=== PATIENT | female | born 1995 | race Two or more races ===

== ENCOUNTER 2016-12-04 00:17 | Emergency (ER) | payer OTHER ==
[2016-12-04] MEDS ORDERED: FLUCONAZOLE 50 MG TABLET PO ONE (00:50)
--- NOTE | 2016-12-04 00:54 | PDOC ---
History of Present Illness - General History Source: Patient Exam Limitations: No Limitations - History of Present Illness Initial Comments: 12/04/16 01:20 The patient is a 21 year old female with no significant past medical history, who presents to the ED with vaginal discharge. The patient noted 2 days of whitish cottage cheese discharge and dysuria. Patient denies any abdominal pain. Patient denies fever, chills. Patient states she had sex with her 3 days ago. Patient states she trusts her . Patient denies history of STDs. <Aakash Baitsta - Last Filed: 12/04/16 01:20> - General History Source: Patient Exam Limitations: No Limitations <Shmuel Rojo - Last Filed: 12/04/16 02:29> - General Stated Complaint: ABDOMINAL PAIN Time Seen by Provider: 12/04/16 00:29 Past History <Aakash Batista - Last Filed: 12/04/16 01:20> - Past Medical History Asthma: No Cancer: No Cardiac Disorders: No Diabetes: No HTN: No Seizures: No Thyroid Disease: No - Psycho/Social/Smoking Cessation Hx Suicidal Ideation: No Smoking History: Never smoked Have you smoked in the past 12 months: No Hx Alcohol Use: No Drug/Substance Use Hx: No Hx Substance Use Treatment: No <Shmuel Rojo - Last Filed: 12/04/16 02:29> - Past Medical History Allergies/Adverse Reactions: Allergies Allergy/AdvReac Type Severity Reaction Status Date / Time No Known Allergies Allergy Verified 12/04/16 01:03 Home Medications: Ambulatory Orders Pnv No.122/Iron/Folic Acid [ Multi Tablet] 1 each PO DAILY 01/20/16 Acetaminophen [Tylenol] 650 mg PO Q4H PRN #20 tablet 12/04/16 Cephalexin [Keflex] 500 mg PO BID #14 capsule 12/04/16 Review of Systems - Review of Systems Able to Perform ROS?: Yes Comments:: 12/04/16 01:20 GENERAL/CONSTITUTIONAL: No fever or chills. No weakness. HEAD, EYES, EARS, NOSE AND THROAT: No change in vision. No ear pain or discharge. No sore throat. CARDIOVASCULAR: No chest pain or shortness of breath. RESPIRATORY: No cough, wheezing, or hemoptysis. GASTROINTESTINAL: No nausea, vomiting, diarrhea or constipation. GENITOURINARY: + vaginal discharge. + dysuria. No frequency, or change in urination. MUSCULOSKELETAL: No joint or muscle swelling or pain. No neck or back pain. SKIN: No rash NEUROLOGIC: No headache, vertigo, loss of consciousness, or change in strength/ sensation. ENDOCRINE: No increased thirst. No abnormal weight change. HEMATOLOGIC/LYMPHATIC: No anemia, easy bleeding, or history of blood clots. ALLERGIC/IMMUNOLOGIC: No hives or skin allergy. Is the patient limited Nepalese proficient: No <Aakash Batista - Last Filed: 12/04/16 01:20> *Physical Exam - Vital Signs Last Vital Signs Temp Pulse Resp BP Pulse Ox 98.9 F 78 18 116/80 99 12/04/16 01:00 12/04/16 01:00 12/04/16 01:00 12/04/16 01:00 12/04/16 01:00 - Physical Exam Comments: 12/04/16 01:21 GENERAL: Awake, alert, and fully oriented, in no acute distress HEAD: No signs of trauma EYES: PERRLA, EOMI, sclera anicteric, conjunctiva clear ENT: Auricles normal inspection, hearing grossly normal, nares patent, oropharynx clear without exudates. Moist mucosa NECK: Normal ROM, supple, no lymphadenopathy, JVD, or masses LUNGS: Breath sounds equal, clear to auscultation bilaterally. No wheezes, and no crackles HEART: Regular rate and rhythm, normal S1 and S2, no murmurs, rubs or gallops ABDOMEN: Soft, nontender, normoactive bowel sounds. No guarding, no rebound. No masses VAGINAL: Whitish cottage cheese discharge. No CMT. No adnexal tenderness. EXTREMITIES: Normal range of motion, no edema. No clubbing or cyanosis. No cords, erythema, or tenderness NEUROLOGICAL: Cranial nerves II through XII grossly intact. Normal speech, normal gait SKIN: Warm, Dry, normal turgor, no rashes or lesions noted. <Aakash Batista - Last Filed: 12/04/16 01:20> Medical Decision Making - Medical Decision Making 12/04/16 01:14 A portion of this note was documented by scribe services under my direction. I have reviewed the details of the note, within reason, and agree with the documentation with the following case summary and management plan written by me. Patient treated in the ED. Nursing notes are reviewed and incorporated into the medical decision-making. Vital signs reviewed. Peripheral IV access obtained by the nurse, laboratory studies are drawn and sent, reviewed and interpreted by myself. Vital Signs Temp Pulse Resp BP Pulse Ox 98.9 F 78 18 116/80 99 12/04/16 01:00 12/04/16 01:00 12/04/16 01:00 12/04/16 01:00 12/04/16 01:00 21 year old female with no past medical history presents with vaginal discharge. The patient noted 2 days of whitish cottage cheese discharge and dysuria. No abdominal pain or fever. Had sex 3 days ago with her . She trusts her . Denies hx of STDs. Pt has a vaginal yeast infection. Will treat with antifungals. UA/UC. Pain control. Reassess 12/04/16 02:27 Urine Test Results Urine Color Yellow 12/04/16 01:26 Urine Appearance Slcloudy 12/04/16 01:26 Urine pH 6.0 (5.0-8.0) 12/04/16 01:26 Ur Specific [place] 1.031 (1.001-1.035) 12/04/16 01:26 Urine Protein Negative (NEGATIVE) 12/04/16 01:26 Urine Glucose (UA) Negative (NEGATIVE) 12/04/16 01:26 Urine Ketones Negative (NEGATIVE) 12/04/16 01:26 Urine Blood Negative (NEGATIVE) 12/04/16 01:26 Urine Nitrite Negative (NEGATIVE) 12/04/16 01:26 Urine Bilirubin Negative (NEGATIVE) 12/04/16 01:26 Ur Leukocyte Esterase 3+ (NEGATIVE) H D 12/04/16 01:26 Urine RBC 6 /hpf (0-3) 12/04/16 01:26 Urine WBC 17 /hpf (3-5) 12/04/16 01:26 Ur Epithelial Cells Rare /hpf (FEW) 12/04/16 01:26 Urine Mucus Many 12/04/16 01:26 Urine test negative. Will treat with keflex Fluconazole was ordered. I discussed the physical exam findings, ancillary test results and final diagnoses with the patient. I answered all of the patient's questions. The patient was satisfied with the care received and felt comfortable with the discharge plan and treatment plan. The patient will call their primary care physician within 24 hours to arrange follow-up and will return to the Emergency Department with any new, persistant or worsening symptoms. <Shmuel Rojo - Last Filed: 12/04/16 02:29> *DC/Admit/Observation/Transfer - Attestations Scribe Attestion: 12/04/16 01:23 Documentation prepared by Aakash Batista, acting as medical translator for Shmuel Rojo MD, MD. <Aakash Batisat - Last Filed: 12/04/16 01:20> - Discharge Dispostion Admit: No <Shmuel Rojo - Last Filed: 12/04/16 02:29> Diagnosis at time of Disposition: Vaginal yeast infection UTI (urinary tract infection) Qualifiers: Urinary tract infection type: site unspecified Hematuria presence: without hematuria Qualified Code(s): N39.0 - Urinary tract infection, site not specified - Discharge Dispostion Disposition: HOME Condition at time of disposition: Improved - Prescriptions Prescriptions: Cephalexin [Keflex] 500 mg PO BID #14 capsule Acetaminophen [Tylenol] 650 mg PO Q4H PRN #20 tablet PRN Reason: Pain/Fever - Patient Instructions Printed Discharge Instructions: DI for Urinary Tract Infection (UTI), DI for Vaginal Yeast Infection Additional Instructions: You have a yeast and urine infection. Please take the keflex (antibiotic) every 12 hours for the next week. You were also given a dose of fluconazole. Follow up with your doctors.
[2016-12-04] MEDS ORDERED: ACETAMINOPHEN 325 MG TABLET (FP) PO ONE (00:56)
[2016-12-04 01:03] VITALS: BP 116/80; PULSE 78; TEMP 98.9; BMI 21.7
[2016-12-04] MEDS ORDERED: FLUCONAZOLE 100 MG TABLET (UD) ONE (01:16)
[2016-12-04] MEDS ORDERED: ACETAMINOPHEN 325 MG TABLET (FP) ONE (01:16)
[2016-12-04 01:59] LABS: URINE APPEARANCE SLCLOUDY; URINE BILIRUBIN NEGATIVE (NEGATIVE); URINE BLOOD NEGATIVE (NEGATIVE); URINE COLOR YELLOW; URINE GLUCOSE (UA) NEGATIVE (NEGATIVE); URINE KETONE NEGATIVE (NEGATIVE); URINE NITRITE NEGATIVE (NEGATIVE); URINE PROTEIN NEGATIVE (NEGATIVE); URINE UROBILINOGEN NEGATIVE E.U./dl (0.2-1.0)
[2016-12-04 02:23] LABS: URINE LEUK ESTERASE 3+ (NEGATIVE)
[2016-12-04 02:25] LABS: URINE MUCUS MANY; URINE RBC 6 /hpf (0-3); URINE WBC 17 /hpf (3-5)
[2016-12-04] MEDS ORDERED: CEPHALEXIN MONOHYDRATE 500 MG CAPSULE (UD) PO ONE (02:26)
[2016-12-04] MEDS ORDERED: CEPHALEXIN MONOHYDRATE 250 MG CAPSULE (FP) ONE (02:29)
== END 2016-12-04 02:36 | disposition home or self-care (01) ==
LOC: JER 00:17
DX: B37.49 Other urogenital candidiasis (principal)
CPT/HCPCS: 81003; 81015; 84703; 87077; 87086; 99282-25

== ENCOUNTER 2017-05-11 15:07 | Emergency (ER) | payer OTHER ==
[2017-05-11 15:16] VITALS: TEMP 98.3; BMI 22.3
--- NOTE | 2017-05-11 16:38 | PDOC ---
History of Present Illness - General History Source: Patient Exam Limitations: No Limitations - History of Present Illness Initial Comments: 05/11/17 16:45 The patient is a 21 year old female, A0 with no significant past medical history, who presents to the emergency department with abdominal pain onset today. She describes her abdominal pain as a cramping sensation, ranging from mild to moderate, without radiation or modifying factors. She notes that she was told yesterday that she was but is not aware of how many weeks she is. She reports that she was taking control and has not had her menstrual period since she recently gave to a full term child via vaginal . She denies any vaginal bleeding. The patient is currently breast feeding her . The patient denies chest pain, shortness of breath, headache and dizziness. Denies fever, chills, nausea, vomit, diarrhea and constipation. Denies dysuria, frequency, urgency and hematuria. Allergies: None Past surgical history: None reported Social history: No alcohol, tobacco or drug use reported <Edwin Katz - Last Filed: 05/11/17 16:44> - General History Source: Patient Exam Limitations: No Limitations <Shmuel Rojo - Last Filed: 05/11/17 19:35> - General Chief Complaint: Pain Stated Complaint: PAIN IN VAGINAL AREA Time Seen by Provider: 05/11/17 16:05 Past History <Edwin Katz - Last Filed: 05/11/17 16:44> - Past Medical History Asthma: No Cancer: No Cardiac Disorders: No Diabetes: No HTN: No Seizures: No Thyroid Disease: No - Reproductive History (#): 1 Para: 1 - Psycho/Social/Smoking Cessation Hx Anxiety: No Suicidal Ideation: No Smoking History: Never smoked Have you smoked in the past 12 months: No Hx Alcohol Use: No Drug/Substance Use Hx: No Substance Use Type: None Hx Substance Use Treatment: No <Shmuel Rojo - Last Filed: 05/11/17 19:35> - Past Medical History Allergies/Adverse Reactions: Allergies Allergy/AdvReac Type Severity Reaction Status Date / Time No Known Allergies Allergy Verified 05/11/17 15:16 Home Medications: Ambulatory Orders Pnv No.122/Iron/Folic Acid [ Multi Tablet] 1 each PO DAILY 01/20/16 Acetaminophen [Tylenol] 650 mg PO Q4H PRN #20 tablet 12/04/16 Cephalexin [Keflex] 500 mg PO BID #14 capsule 12/04/16 Nitrofurantoin Monohyd/M-Cryst [Macrobid -] 100 mg PO BID #14 capsule 05/11/17 Vit Calc,Iron,Folic [ Vitamins] 1 each PO DAILY #30 tablet Review of Systems - Review of Systems Able to Perform ROS?: Yes Comments:: 05/11/17 16:44 GENERAL/CONSTITUTIONAL: No fever or chills. No weakness. HEAD, EYES, EARS, NOSE AND THROAT: No change in vision. No ear pain or discharge. No sore throat. CARDIOVASCULAR: No chest pain or shortness of breath RESPIRATORY: No cough, wheezing, or hemoptysis. GASTROINTESTINAL: (+) Abdominal cramping. No nausea, vomiting, diarrhea or constipation. GENITOURINARY: No dysuria, frequency, or change in urination. MUSCULOSKELETAL: No joint or muscle swelling or pain. No neck or back pain. SKIN: No rash NEUROLOGIC: No headache, vertigo, loss of consciousness, or change in strength/ sensation. ENDOCRINE: No increased thirst. No abnormal weight change HEMATOLOGIC/LYMPHATIC: No anemia, easy bleeding, or history of blood clots. ALLERGIC/IMMUNOLOGIC: No hives or skin allergy. <Edwin Katz - Last Filed: 05/11/17 16:44> *Physical Exam - Vital Signs Last Vital Signs Temp Pulse Resp BP Pulse Ox 98.3 F 82 20 127/68 100 05/11/17 15:14 05/11/17 15:14 05/11/17 15:14 05/11/17 15:14 05/11/17 15:14 - Physical Exam Comments: 05/11/17 16:44 GENERAL: Awake, alert, and fully oriented, in no acute distress HEAD: No signs of trauma, normocephalic, atraumatic EYES: PERRLA, EOMI, sclera anicteric, conjunctiva clear ENT: Auricles normal inspection, hearing grossly normal, nares patent, oropharynx clear without exudates. Moist mucosa NECK: Normal ROM, supple, no lymphadenopathy, JVD, or masses LUNGS: No distress, speaks full sentences, clear to auscultation bilaterally HEART: Regular rate and rhythm, normal S1 and S2, no murmurs, rubs or gallops, peripheral pulses normal and equal bilaterally. ABDOMEN: Soft, nontender, normoactive bowel sounds. No guarding, no rebound. No masses EXTREMITIES: Normal inspection, Normal range of motion, no edema. No clubbing or cyanosis. NEUROLOGICAL: Cranial nerves II through XII grossly intact. Normal speech, normal gait, no focal sensorimotor deficits SKIN: Warm, Dry, normal turgor, no rashes or lesions noted. PELVIC EXAM: No CMT, no anexal tenderness, no blood in vault, os closed <Edwin Katz - Last Filed: 05/11/17 16:44> - Vital Signs Last Vital Signs Temp Pulse Resp BP Pulse Ox 98.3 F 82 20 127/68 100 05/11/17 15:14 05/11/17 15:14 05/11/17 15:14 05/11/17 15:14 05/11/17 15:14 <Shmuel Rojo - Last Filed: 05/11/17 19:35> ED Treatment Course - LABORATORY CBC & Chemistry Diagram: 05/11/17 17:00 <Shmuel Rojo - Last Filed: 05/11/17 19:35> Medical Decision Making - Medical Decision Making 05/11/17 16:36 A portion of this note was written by my scribe, under my supervision. Vital Signs Temp Pulse Resp BP Pulse Ox 98.3 F 82 20 127/68 100 05/11/17 15:14 05/11/17 15:14 05/11/17 15:14 05/11/17 15:14 05/11/17 15:14 21 year old female with no past medical history, , recently tested positive for , presents with lower abdominal cramping. The patient states that she recently found she was . She is still breast feeding her baby and did not have a period. Today, noted lower abd cramping but denies vaginal bleeding. Denies dysuria. Came into the ED for further evaluation. Will r/o ectopic vs. threatened . Labs, beta hcg, ua, type and screen, and transvaginal ultrasound. 05/11/17 19:29 Ultrasound reviewed. Retroverted uterus with thickening of the endometrial stripe an intrauterine sac like structure with a mean sac diameter of a 0.4 compatible with estimated gestational age of 5 weeks and 4 days. No pole or yok sac is seen. CBC, BMP 05/11/17 17:00 CMP Beta HCG, Quant 745.9 mIU/ml 05/11/17 17:00 Blood Type, Rh (Baby) Blood Type A POSITIVE 05/11/17 17:00 Urine Test Results Urine Color Yellow 05/11/17 16:30 Urine Appearance Clear 05/11/17 16:30 Urine pH 6.0 (5.0-8.0) 05/11/17 16:30 Urine Protein Negative (NEGATIVE) 05/11/17 16:30 Urine Glucose (UA) Negative (NEGATIVE) 05/11/17 16:30 Urine Ketones Negative (NEGATIVE) 05/11/17 16:30 Urine Blood Negative (NEGATIVE) 05/11/17 16:30 Urine Nitrite Negative (NEGATIVE) 05/11/17 16:30 Urine Bilirubin Negative (NEGATIVE) 05/11/17 16:30 Ur Leukocyte Esterase 2+ (NEGATIVE) H 05/11/17 16:30 Urine RBC 2 /hpf (0-3) 05/11/17 16:30 Urine WBC 10 /hpf (3-5) 05/11/17 16:30 Ur Epithelial Cells Moderate /hpf (FEW) 05/11/17 16:30 Urine Mucus Few 05/11/17 16:30 UA positive for infection. Will give macrobid. Beta HCG is 745 but ultrasound shows 5 wks and 4 days. BUT NO POLE OR YOLK SACK. I instructed the patient that there is a discrepancy, and that the patient must follow up in 2 days for repeat blood work (beta HCG) and ultrasound. Pt verbalizes understanding and agrees with plan. I discussed the physical exam findings, ancillary test results and final diagnoses with the patient. I answered all of the patient's questions. The patient was satisfied with the care received and felt comfortable with the discharge plan and treatment plan. The patient will call their primary care physician within 24 hours to arrange follow-up and will return to the Emergency Department with any new, persistant or worsening symptoms. <Shmuel Rojo - Last Filed: 05/11/17 19:35> *DC/Admit/Observation/Transfer - Attestations Scribe Attestion: 05/11/17 16:44 Documentation prepared by Edwin Osiris Lombert, acting as medical parasitologist for Shmuel Rojo MD <Edwin Katz - Last Filed: 05/11/17 16:44> - Discharge Dispostion Admit: No <Shmuel Rojo - Last Filed: 05/11/17 19:35> Diagnosis at time of Disposition: UTI (urinary tract infection) Qualifiers: Urinary tract infection type: site unspecified Hematuria presence: without hematuria Qualified Code(s): N39.0 - Urinary tract infection, site not specified Qualifiers: Weeks of gestation: unspecified Qualified Code(s): Z33.1 - state, incidental - Discharge Dispostion Disposition: HOME Condition at time of disposition: Stable - Prescriptions Prescriptions: Nitrofurantoin Monohyd/M-Cryst [Macrobid -] 100 mg PO BID #14 capsule Vit Calc,Iron,Folic [ Vitamins] 1 each PO DAILY #30 tablet - Patient Instructions Printed Discharge Instructions: DI for Abdominal Pain -- Early , DI for Urinary Tract Infection (UTI) Additional Instructions: You have an urinary tract infection. Please take the antibiotics (macrobid) every 12 hours for the next week. Drink plenty of fluids and rest. Take your vitamins. 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 If you start to have vaginal bleed, please return to the ER sooner.
[2017-05-11 16:52] LABS: URINE APPEARANCE CLEAR; URINE BILIRUBIN NEGATIVE (NEGATIVE); URINE BLOOD NEGATIVE (NEGATIVE); URINE COLOR YELLOW; URINE GLUCOSE (UA) NEGATIVE (NEGATIVE); URINE KETONE NEGATIVE (NEGATIVE); URINE NITRITE NEGATIVE (NEGATIVE); URINE PROTEIN NEGATIVE (NEGATIVE); URINE UROBILINOGEN NEGATIVE E.U./dl (0.2-1.0)
[2017-05-11 16:58] LABS: URINE LEUK ESTERASE 2+ (NEGATIVE)
[2017-05-11 17:00] LABS: URINE HYALINE CAST 4 /lpf; URINE MUCUS FEW; URINE RBC 2 /hpf (0-3); URINE WBC 10 /hpf (3-5)
[2017-05-11 17:15] LABS: BASOPHIL 0.3 % (0-2.0); EOSINOPHIL 1.3 % (0-4.5); MCH 24.8 pg (25.7-33.7); MCHC 32.8 g/dl (32.0-36.0); MEAN CELL VOLUME 75.6 fl (80-96); MEAN PLT VOLUME 9.6 fl (7.5-11.1); PLATELET COUNT 257 K/MM3 (134-434); RDW 14.4 % (11.6-15.6); WHITE BLOOD COUNT 11.6 K/mm3 (4.0-10.0)
[2017-05-11] MEDS ORDERED: NITROFURANTOIN MACROCRYSTAL 50 MG CAPSULE (FP) PO SCH (19:45)
[2017-05-11] MEDS ORDERED: NITROFURANTOIN MACROCRYSTAL 50 MG CAPSULE (FP) ONE (19:52)
== END 2017-05-11 19:54 | disposition home or self-care (01) ==
LOC: JER 15:07
DX: O23.41 Unspecified infection of urinary tract in pregnancy, first trimester (principal); Z3A.01 Less than 8 weeks gestation of pregnancy
CPT/HCPCS: 36415; 76817-TC; 81003; 81015; 84702; 84703; 85025; 86850; 86900; 86901; 87086; 99283-25

== ENCOUNTER 2017-05-16 11:15 | Emergency (ER) | payer OTHER ==
[2017-05-16 11:21] VITALS: BP 115/64; PULSE 84; TEMP 98; BMI 21.3
--- NOTE | 2017-05-16 11:56 | PDOC ---
History of Present Illness - General History Source: Patient Exam Limitations: No Limitations - History of Present Illness Initial Comments: 05/16/17 12:36 The patient is a 21-year-old woman , approximately 5 weeks with no past medical history who presents to the emergency department for routine follow up. Patient was in this ED on 05/11/2017 complaining of abdominal pain. Patient's UA was positive for and for infection and a beta HCG was measured to be 745. At the time, an ultrasound was performed and showed and estimated a 5 week and 4 days but no pole or yolk sack. She was started on Macrobid and was advised to present to the ED for repeat blood work and ultrasound, thus presenting today. Upon patient interview, patient reports she is still experiencing some mild abdominal cramping and had one episode of scant blood vaginal bleeding, yesterday. No recurrence. No clots. She denies fever, chills, diaphoresis, generalized weakness. She denies chest pain, shortness of breath, cough She denies nausea, vomiting, diarrhea, dysuria, hematuria, urinary frequency and urgency, flank pain, vaginal discharge. Allergies: No Known Drug Allergies Past Surgical History: Non reported Social History: No tobacco, EtOH and recreational drug use Primary Care Phsyician: Dr. Pema Guerin Firmware Engineer: Has not started care. <Dafne Cyr - Last Filed: 05/16/17 15:39> <Kayleigh Camara - Last Filed: 05/16/17 15:47> - General Chief Complaint: Vaginal Bleeding Stated Complaint: VAGINAL BLEEDING () Time Seen by Provider: 05/16/17 11:56 Past History <Dafne Cyr - Last Filed: 05/16/17 15:39> - Past Medical History Asthma: No Cancer: No Cardiac Disorders: No Diabetes: No HTN: No Seizures: No Thyroid Disease: No - Reproductive History (#): 1 Para: 1 - Psycho/Social/Smoking Cessation Hx Anxiety: No Suicidal Ideation: No Smoking History: Never smoked Have you smoked in the past 12 months: No Information on smoking cessation initiated: No Hx Alcohol Use: No Drug/Substance Use Hx: No Substance Use Type: None Hx Substance Use Treatment: No <Kayleigh Camara - Last Filed: 05/16/17 15:47> - Past Medical History Allergies/Adverse Reactions: Allergies Allergy/AdvReac Type Severity Reaction Status Date / Time No Known Allergies Allergy Verified 05/16/17 11:21 Home Medications: Ambulatory Orders NK [No Known Home Medication] 05/16/17 Review of Systems - Review of Systems Able to Perform ROS?: Yes Comments:: 05/16/17 12:36 GENERAL/CONSTITUTIONAL: No fever or chills. No weakness. HEAD, EYES, EARS, NOSE AND THROAT: No change in vision. No ear pain or discharge. No sore throat. CARDIOVASCULAR: No chest pain or shortness of breath. RESPIRATORY: No cough, wheezing, or hemoptysis. GASTROINTESTINAL: Yes: Abdominal Cramping. No nausea, vomiting, diarrhea or constipation. GENITOURINARY: Yes: Vaginal bleed. No dysuria, frequency, or change in urination. MUSCULOSKELETAL: No joint or muscle swelling or pain. No neck or back pain. SKIN: No rash NEUROLOGIC: No headache, vertigo, loss of consciousness, or change in strength/ sensation. ENDOCRINE: No increased thirst. No abnormal weight change. HEMATOLOGIC/LYMPHATIC: No anemia, easy bleeding, or history of blood clots. ALLERGIC/IMMUNOLOGIC: No hives or skin allergy. <Dafne Cyr - Last Filed: 05/16/17 15:39> *Physical Exam - Vital Signs Last Vital Signs Temp Pulse Resp BP Pulse Ox 98 F 84 18 115/64 99 05/16/17 11:18 05/16/17 11:18 05/16/17 11:18 05/16/17 11:18 05/16/17 11:18 - Physical Exam Comments: 05/16/17 12:36 GENERAL: Awake, alert, and fully oriented, in no acute distress HEAD: No signs of trauma EYES: PERRLA, EOMI, sclera anicteric, conjunctiva clear ENT: Auricles normal inspection, hearing grossly normal, nares patent, oropharynx clear without exudates. Moist mucosa NECK: Normal ROM, supple, no lymphadenopathy, JVD, or masses LUNGS: Breath sounds equal, clear to auscultation bilaterally. No wheezes, and no crackles HEART: Regular rate and rhythm, normal S1 and S2, no murmurs, rubs or gallops ABDOMEN: Soft, nontender, normoactive bowel sounds. No guarding, no rebound. No masses EXTREMITIES: Normal range of motion, no edema. No clubbing or cyanosis. No cords, erythema, or tenderness NEUROLOGICAL: Cranial nerves II through XII grossly intact. Normal speech <Dafne Cyr - Last Filed: 05/16/17 15:39> - Vital Signs Last Vital Signs Temp Pulse Resp BP Pulse Ox 98 F 84 18 115/64 99 05/16/17 11:18 05/16/17 11:18 05/16/17 11:18 05/16/17 11:18 05/16/17 11:18 <Kayleigh Camara - Last Filed: 05/16/17 15:47> ED Treatment Course - RADIOLOGY Radiograph Interpretation: 05/16/17 15:26 EXAM: US/ LIMITED US/ US/TRANSVAGINAL Interpreted by Dr. Alberto Barrera IMPRESSION: Real time examination of the pelvis utilizing both the transabdominal and transvaginal probes demonstrates the following: There is an intrauterine fluid collection that has the appearance of a gestational sac. Mean sac diameter measurements correspond to a gestational age of 5 weeks 3 days. A yolk sac is noted, however, no pole is identified. Therefore, the viability of this gestation is uncertain. Correlation with serial beta subunit hCG levels and follow-up ultrasonography is now recommended. The ovaries are normal in size and texture with a complex cystic structure within the left ovary measuring 2.3 x 1.4 x 1.3 cm. This most likely represents a corpus luteum cyst. There is no evidence of adnexal masses. Trace free fluid is identified within the cul-de-sac. <Dafne Cyr - Last Filed: 05/16/17 15:39> Medical Decision Making - Medical Decision Making 05/16/17 14:37 Pt presents to the ED for re-evaluation. Patient was seen in the ED two days ago for vaginal bleeding and abdominal pain and was found to have a gestational sac with a BHCG of 765. Now, all of her symptoms have resolved. EXam is normal. BHCG is 4000. Will recheck US, discharge home if IUP is visualized. 05/16/17 15:46 BHCG is now 4000, + yolk sac on trans vaginal US. Will discharge home. <Kayleihg Camara - Last Filed: 05/16/17 15:47> *DC/Admit/Observation/Transfer - Attestations Scribe Attestion: 05/16/17 12:36 Documentation prepared by Dafne Cyr, acting as medical and scientific illustrator for Kayleigh Camara MD, MD/DO. <Dafne Cyr - Last Filed: 05/16/17 15:39> - Discharge Dispostion Admit: No <Kayleigh Camara - Last Filed: 05/16/17 15:47> Diagnosis at time of Disposition: Threatened - Discharge Dispostion Disposition: HOME Condition at time of disposition: Good - Referrals Referrals: Pema Solano MD [Primary Care Provider] - Neftaly Orellana MD [Staff Physician] - - Patient Instructions Printed Discharge Instructions: DI for Threatened Additional Instructions: Return to the ED for severe pain, heavy vaginal bleeding, passing out, new or worsening symptoms.
== END 2017-05-16 16:12 | disposition home or self-care (01) ==
LOC: JER 11:15
DX: O20.0 Threatened abortion (principal); O34.81 Maternal care for other abnormalities of pelvic organs, first trimester; N83.12 Corpus luteum cyst of left ovary; Z3A.01 Less than 8 weeks gestation of pregnancy
CPT/HCPCS: 36415; 76815-TC; 76817-TC; 84702; 99282-25